=== PATIENT | female | born 1945 | race Caucasian/White ===

== ENCOUNTER 2020-02-07 07:44 | Outpatient (CLI) | payer MEDICARE, SELFPAY ==
[2020-02-07 08:30] LABS: Alanine Aminotransferase 20 U/L (14-59); Albumin Level 3.5 g/dL (3.4-5.0); Alkaline Phosphatase 72 U/L (46-116); Anion Gap 5 mmol/L (8-16); Aspartate Amino Transferase 20 U/L (15-37); Bilirubin,Total 0.7 mg/dL (0.00-1.00); Blood Urea Nitrogen 22 mg/dL (7-18); Calcium 9.2 mg/dL (8.5-10.1); Carbon Dioxide 34 mmol/L (21-32); Chloride 103 mmol/L (98-108); Cholesterol 176 mg/dL (0-200); Estimated Glomerular Filt Rate 41; Glucose 87 mg/dL (70-99); HDL Direct 77 mg/dL (40-60); LDL Cholesterol Calculated 73 mg/dL (<130); Osmolality Calculated 296 mOsm/kg (285-295); Potassium 3.7 mmol/L (3.5-5.1); Sodium 142 mmol/L (136-145); Triglycerides 132 mg/dL (0-150)
== END 2020-02-07 07:45 | disposition home or self-care (01) ==
PROVIDERS: PCP Internal Medicine; Visit Provider Internal Medicine
DX: E78.5 Hyperlipidemia, unspecified (principal); I10 Essential (primary) hypertension
CPT/HCPCS: 36415; 80053; 80061

== ENCOUNTER 2020-07-24 08:05 | Outpatient (CLI) | payer MEDICARE, SELFPAY ==
[2020-07-24 08:24] LABS: Add Urine Microscopic? YES; Appearance Urine Clear (Clear); Basophils Absolute Auto 0.07 K/mm3 (0.00-0.10); Basophils Percent Auto 1.2 % (0.0-1.0); Bilirubin Urine Negative (Negative); Blood Urine Negative (Negative); Color Urine Yellow (Yellow); Eosinophils Absolute Auto 0.19 K/mm3 (0.02-0.50); Eosinophils Percent Auto 3.4 % (1.0-6.0); Glucose Urine UA Negative (Negative); Hematocrit 44.3 % (35.0-42.0); Immature Granulocyte Absolute 0.01 K/mm3 (0.00-0.00); Immature Granulocyte Percent A 0.2 % (0.0-0.0); Ketones Urine Negative (Negative); Leukocyte Esterase Ur Trace LEU/UL (Negative); Lymphocytes Absolute Auto 1.93 K/mm3 (1.10-4.50); Lymphocytes Percent Auto 34.3 % (18.0-42.0); Mean Corpuscular HGB Conc 31.6 g/dL (32.0-36.0); Mean Corpuscular Volume 88.6 fL (78.0-102.0); Mean Platelet Volume 9.4 fl (9.2-11.8); Monocytes Absolute Auto 0.49 K/mm3 (0.10-0.90); Monocytes Percent Auto 8.7 % (2.0-11.0); Neutrophils Absolute Auto 2.9 K/mm3 (1.7-7.2); Neutrophils Percent Auto 52.2 % (50.0-70.0); Nitrate Urine Negative (Negative); Platelet Count Result 317 K/mm3 (150-420); Protein Urine Negative (Negative); Red Cell Distribution Width 12.7 % (11.6-14.4); Urobilinogen Urine 0.2 mg/dL (0.2-1.0); White Blood Count 5.6 K/mm3 (4.8-10.8)
[2020-07-24 08:27] LABS: Bacteria Urine Trace /hpf; RBC Urine None seen /hpf (0-2); Squamous Epithelial Cell Urine Few /hpf (Few); WBC Urine None seen /hpf (0-3)
[2020-07-24 09:18] LABS: Alanine Aminotransferase 36 U/L (14-59); Albumin Level 3.8 g/dL (3.4-5.0); Alkaline Phosphatase 77 U/L (46-116); Anion Gap 8 mmol/L (8-16); Aspartate Amino Transferase 17 U/L (15-37); Bilirubin,Total 0.7 mg/dL (0.00-1.00); Blood Urea Nitrogen 19 mg/dL (7-18); Calcium 9.2 mg/dL (8.5-10.1); Carbon Dioxide 32 mmol/L (21-32); Chloride 98 mmol/L (98-108); Cholesterol 166 mg/dL (0-200); Estimated Glomerular Filt Rate 43; Glucose 93 mg/dL (70-99); HDL Direct 78 mg/dL (40-60); LDL Cholesterol Calculated 66 mg/dL (<130); Osmolality Calculated 288 mOsm/kg (285-295); Potassium 3.4 mmol/L (3.5-5.1); Sodium 138 mmol/L (136-145); Total Protein 7.3 g/dL (6.4-8.2); Triglycerides 110 mg/dL (0-150)
== END 2020-07-24 08:06 | disposition home or self-care (01) ==
LOC: CHSLAB 08:07
PROVIDERS: PCP Internal Medicine; Visit Provider Internal Medicine
DX: E78.5 Hyperlipidemia, unspecified (principal); I10 Essential (primary) hypertension
CPT/HCPCS: 36415; 80053; 80061; 81001; 85025

== ENCOUNTER 2021-01-17 07:45 | Outpatient (CLI) | payer MEDICARE, SELFPAY ==
[2021-01-17 08:21] LABS: Alanine Aminotransferase 20 U/L (14-59); Albumin Level 3.6 g/dL (3.4-5.0); Alkaline Phosphatase 73 U/L (46-116); Anion Gap 9 mmol/L (8-16); Aspartate Amino Transferase 16 U/L (15-37); Bilirubin,Total 0.6 mg/dL (0.00-1.00); Blood Urea Nitrogen 19 mg/dL (7-18); Calcium 9.2 mg/dL (8.5-10.1); Carbon Dioxide 32 mmol/L (21-32); Chloride 104 mmol/L (98-108); Cholesterol 178 mg/dL (0-200); Estimated Glomerular Filt Rate 44; Glucose 106 mg/dL (70-99); HDL Direct 82 mg/dL (40-60); LDL Cholesterol Calculated 71 mg/dL (<130); Osmolality Calculated 302 mOsm/kg (285-295); Potassium 3.5 mmol/L (3.5-5.1); Sodium 145 mmol/L (136-145); Triglycerides 125 mg/dL (0-150)
== END 2021-01-17 07:46 | disposition home or self-care (01) ==
LOC: CHSLAB 07:46
PROVIDERS: PCP Internal Medicine; Visit Provider Internal Medicine
DX: I10 Essential (primary) hypertension (principal)
CPT/HCPCS: 36415; 80053; 80061

== ENCOUNTER 2021-07-23 08:21 | Outpatient (CLI) | payer MEDICARE, SELFPAY ==
[2021-07-23 08:42] LABS: Basophils Absolute Auto 0.09 K/mm3 (0.00-0.10); Basophils Percent Auto 1.5 % (0.0-1.0); Eosinophils Absolute Auto 0.18 K/mm3 (0.02-0.50); Eosinophils Percent Auto 2.9 % (1.0-6.0); Hematocrit 35.3 % (35.0-42.0); Hemoglobin 10.6 g/dL (11.7-13.8); Immature Granulocyte Absolute 0.01 K/mm3 (0.00-0.00); Immature Granulocyte Percent A 0.2 % (0.0-0.0); Lymphocytes Absolute Auto 1.28 K/mm3 (1.10-4.50); Lymphocytes Percent Auto 20.8 % (18.0-42.0); Mean Corpuscular Hemoglobin 24.3 pg (27.0-31.0); Mean Corpuscular Volume 80.8 fL (78.0-102.0); Mean Platelet Volume 8.7 fl (9.2-11.8); Monocytes Absolute Auto 0.52 K/mm3 (0.10-0.90); Monocytes Percent Auto 8.4 % (2.0-11.0); Neutrophils Absolute Auto 4.1 K/mm3 (1.7-7.2); Neutrophils Percent Auto 66.2 % (50.0-70.0); Platelet Count Result 382 K/mm3 (150-420); Red Blood Count 4.37 M/mm3 (4.20-5.40); White Blood Count 6.2 K/mm3 (4.8-10.8)
[2021-07-23 08:45] LABS: Appearance Urine Clear (Clear); Bilirubin Urine Negative (Negative); Color Urine Yellow (Yellow); Glucose Urine UA Negative (Negative); Ketones Urine Negative (Negative); Leukocyte Esterase Ur Negative (Negative); Nitrate Urine Negative (Negative); Protein Urine Trace (Negative); pH Urine 7.5 (5.0-8.0)
[2021-07-23 08:51] LABS: Add Urine Microscopic? YES; Blood Urine Trace-Lysed (Negative); RBC Urine 0-2 /hpf (0-2); Squamous Epithelial Cell Urine Moderate /hpf (Few); WBC Urine 0-3 /hpf (0-3)
[2021-07-23 08:52] LABS: Bacteria Urine Trace /hpf; Budding Yeast Urine Present /hpf; Mucus Urine Moderate /lpf
[2021-07-23 09:19] LABS: Alanine Aminotransferase 15 U/L (14-59); Albumin Level 3.3 g/dL (3.4-5.0); Alkaline Phosphatase 80 U/L (46-116); Anion Gap 10 mmol/L (8-16); Aspartate Amino Transferase 12 U/L (15-37); Bilirubin,Total 0.7 mg/dL (0.00-1.00); Blood Urea Nitrogen 24 mg/dL (7-18); Calcium 9.3 mg/dL (8.5-10.1); Carbon Dioxide 31 mmol/L (21-32); Chloride 97 mmol/L (98-108); Cholesterol 157 mg/dL (0-200); Estimated Glomerular Filt Rate 36; Glucose 96 mg/dL (70-99); HDL Direct 78 mg/dL (40-60); LDL Cholesterol Calculated 64 mg/dL (<130); Osmolality Calculated 290 mOsm/kg (285-295); Potassium 3.4 mmol/L (3.5-5.1); Sodium 138 mmol/L (136-145); Thyroid Stimulating Hormone 2.79 uIU/mL (0.36-3.74); Total Protein 6.7 g/dL (6.4-8.2); Triglycerides 74 mg/dL (0-150)
== END 2021-07-23 08:22 | disposition home or self-care (01) ==
LOC: CHSLAB 08:23
PROVIDERS: PCP Internal Medicine; Visit Provider Internal Medicine
DX: E78.5 Hyperlipidemia, unspecified (principal); I10 Essential (primary) hypertension; Z00.00 Encounter for general adult medical examination without abnormal findings
CPT/HCPCS: 36415; 80053; 80061; 81001; 84443; 85025

== ENCOUNTER 2021-07-25 12:16 | Outpatient (CLI) | payer MEDICARE, SELFPAY ==
--- NOTE | ~2021-07-25 | XR_ITS ---
XR chest 2V 07/25/2021 12:49 Indication: Anemia. Proteinuria. Procedure: 2 view chest Comparison: 02/06/2009 Findings: Large hiatal hernia. Scoliosis. Heart size normal. No focal air space disease, pulmonary ed dominik, pleural effusion or suspected pneumothorax. Impression: 1: No acute cardiopulmonary disease. 2: Large hiatal hernia. Reviewed, dictated and finalized at location B. ICAL LAB TECHNICIAN Impression: 1: No acute cardiopulmonary disease. 2: Large hiatal hernia.
[2021-07-25 12:44] LABS: Basophils Absolute Auto 0.08 K/mm3 (0.00-0.10); Basophils Percent Auto 1.3 % (0.0-1.0); Eosinophils Absolute Auto 0.13 K/mm3 (0.02-0.50); Eosinophils Percent Auto 2.1 % (1.0-6.0); Hematocrit 34.9 % (35.0-42.0); Hemoglobin 10.5 g/dL (11.7-13.8); Immature Granulocyte Absolute 0.02 K/mm3 (0.00-0.00); Immature Granulocyte Percent A 0.3 % (0.0-0.0); Immature Platelet Fraction Pct 1.3 % (1.0-7.0); Immature Reticulocyte Fraction 24.7 % (2.0-16.52); Lymphocytes Absolute Auto 1.39 K/mm3 (1.10-4.50); Lymphocytes Percent Auto 22.5 % (18.0-42.0); Mean Corpuscular HGB Conc 30.1 g/dL (32.0-36.0); Mean Corpuscular Hemoglobin 24.2 pg (27.0-31.0); Mean Corpuscular Volume 80.4 fL (78.0-102.0); Mean Platelet Volume 9.2 fl (9.2-11.8); Monocytes Absolute Auto 0.54 K/mm3 (0.10-0.90); Monocytes Percent Auto 8.7 % (2.0-11.0); Neutrophils Percent Auto 65.1 % (50.0-70.0); Platelet Count Result 411 K/mm3 (150-420); Red Blood Count 4.34 M/mm3 (4.20-5.40); Red Cell Distribution Width 14.2 % (11.6-14.4); Reticulocyte Hemoglobin Conten 22.8 pg (28.0-35.0); Reticulocytes Absolute 0.08 M/mm3 (0.02-0.1); White Blood Count 6.2 K/mm3 (4.8-10.8)
[2021-07-25 12:47] LABS: Add Urine Microscopic? YES; Appearance Urine Sl Cloudy (Clear); Bilirubin Urine Negative (Negative); Blood Urine 1+ (Negative); Color Urine Yellow (Yellow); Glucose Urine UA Negative (Negative); Ketones Urine Negative (Negative); Leukocyte Esterase Ur Negative (Negative); Nitrate Urine Negative (Negative); Protein Urine Negative (Negative); Specific Grav Ur >= 1.030 (1.010-1.020); Urobilinogen Urine 0.2 mg/dL (0.2-1.0); pH Urine 5.5 (5.0-8.0)
[2021-07-25 13:00] LABS: Bacteria Urine 1+ /hpf; Squamous Epithelial Cell Urine Moderate /hpf (Few); WBC Urine 0-3 /hpf (0-3)
[2021-07-25 13:17] LABS: Alanine Aminotransferase 15 U/L (14-59); Albumin Level 3.4 g/dL (3.4-5.0); Alkaline Phosphatase 79 U/L (46-116); Anion Gap 9 mmol/L (8-16); Aspartate Amino Transferase 11 U/L (15-37); Bilirubin,Total 0.6 mg/dL (0.00-1.00); Blood Urea Nitrogen 22 mg/dL (7-18); Carbon Dioxide 31 mmol/L (21-32); Chloride 99 mmol/L (98-108); Estimated Glomerular Filt Rate 42; Ferritin 8 ng/mL (8-252); Free T3 2.46 pg/mL (2.18-3.98); Free T4 Free Thyroxine 1.07 ng/dL (0.76-1.46); Glucose 99 mg/dL (70-99); Iron 14 ug/dL (50-170); Lactate Dehydrogenase 165 U/L (81-234); Osmolality Calculated 291 mOsm/kg (285-295); Percent Iron Saturation 3 % (12-57); Potassium 3.1 mmol/L (3.5-5.1); Sodium 139 mmol/L (136-145); Thyroid Stimulating Hormone 2.02 uIU/mL (0.36-3.74); Total Protein 6.9 g/dL (6.4-8.2)
[2021-07-25 13:22] LABS: CRP < 0.5 mg/dL (0.0-0.9)
[2021-07-29 04:11] LABS: Thyroglobulin 167.6 ng/mL (2.8-40.9); Thyroglobulin Antibodies <1 IU/mL (<=1)
[2021-07-29 07:35] LABS: Red Blood Cell Folate 685 ng/mL RBC (>280)
[2021-07-29 07:54] LABS: Methylmalonic Acid 340 nmol/L (87-318)
== END 2021-07-25 12:17 | disposition home or self-care (01) ==
LOC: CHSLAB 12:19
PROVIDERS: PCP Internal Medicine; Visit Provider Internal Medicine
DX: D64.9 Anemia, unspecified (principal); R80.9 Proteinuria, unspecified; R22.1 Localized swelling, mass and lump, neck
CPT/HCPCS: 36415; 71046; 80053; 81001; 82728; 82747; 83540; 83550; 83615; 83921; 84432; 84439; 84443; 84481; 85025; 85046; 85055; 86140; 86800

== ENCOUNTER 2021-07-27 13:12 | Outpatient (CLI) | payer MEDICARE, SELFPAY ==
--- NOTE | ~2021-07-27 | US_ITS ---
EXAMINATION: US renal BI EXAM DATE: 07/27/2021 13:46 INDICATION: Blood in Urine/Neck Mass . TECHNIQUE: Multiple grayscale and Doppler images of the kidneys were obtained (by a technologist who performed the scan) and subsequently reviewed. There is no prior study for comparison. FINDINGS: Right kidney: There is normal contour and echogenicity. It measures 8.6 x 3.8 x 4.0 centimeters. Th ere are no focal renal lesions identified. There is no hydronephrosis. Left kidney: There is normal contour and echogenicity. It measures 8.2 x 4.0 x 3.7 centimeters. The re are no focal renal lesions identified. There is no hydronephrosis. Bladder unremarkable. IMPRESSION: Sonographically unremarkable kidneys. Reviewed, dictated and finalized at location A. ING MACHINE SET UP OPERATOR
--- NOTE | ~2021-07-27 | US_ITS ---
US soft tissue head and neck DATE: 07/27/2021 13:46 INDICATION: Neck mass TECHNIQUE: Real-time and color flow imaging of the neck COMPARISON: None FINDINGS: The left lobe of the thyroid gland measures 4.3 cm height, up to 1.0 cm AP dimension. There is a circumscribed 3.2 x 5.7 x 6.8 mm cyst of the midportion of the left lobe of the thyroid gl and. The left lobe and thyroid isthmus are otherwise unremarkable. There is a large complex mixed solid and cystic mass of the region of the right lobe of the thyroid g land which measures up to 5.9 x 3.6 x 5.6 cm, with prominent internal vascularity. Fine needle aspira tion biopsy is recommended. IMPRESSION: TR 4 moderately suspicious to 6.8 cm right thyroid mass. Fine-needle aspiration is recomm ended. Reviewed, dictated and finalized at Location A. Reviewed, dictated and finalized at location A. DATION DRILL OPERATOR HELPER IMPRESSION: TR 4 moderately suspicious to 6.8 cm right thyroid mass. Fine-needl e aspiration is recommended.
== END 2021-07-27 13:13 | disposition home or self-care (01) ==
LOC: CHSIMG 13:14
PROVIDERS: PCP Internal Medicine; Visit Provider Internal Medicine
DX: D64.9 Anemia, unspecified (principal); R80.9 Proteinuria, unspecified; R22.1 Localized swelling, mass and lump, neck; R31.9 Hematuria, unspecified
CPT/HCPCS: 76536; 76775

== ENCOUNTER 2021-07-30 09:27 | Outpatient (CLI) | payer MEDICARE, SELFPAY ==
[2021-07-30 09:41] LABS: Basophils Absolute Auto 0.07 K/mm3 (0.00-0.10); Eosinophils Absolute Auto 0.22 K/mm3 (0.02-0.50); Hematocrit 36.2 % (35.0-42.0); Hemoglobin 10.8 g/dL (11.7-13.8); Immature Granulocyte Absolute 0.01 K/mm3 (0.00-0.00); Immature Granulocyte Percent A 0.1 % (0.0-0.0); Lymphocytes Absolute Auto 1.78 K/mm3 (1.10-4.50); Lymphocytes Percent Auto 24.5 % (18.0-42.0); Mean Corpuscular HGB Conc 29.8 g/dL (32.0-36.0); Mean Corpuscular Hemoglobin 23.7 pg (27.0-31.0); Mean Corpuscular Volume 79.6 fL (78.0-102.0); Monocytes Percent Auto 8.3 % (2.0-11.0); Neutrophils Absolute Auto 4.6 K/mm3 (1.7-7.2); Neutrophils Percent Auto 63.1 % (50.0-70.0); Platelet Count Result 410 K/mm3 (150-420); Red Blood Count 4.55 M/mm3 (4.20-5.40); Red Cell Distribution Width 14.6 % (11.6-14.4); White Blood Count 7.3 K/mm3 (4.8-10.8)
[2021-07-30 10:13] LABS: Occult Blood Negative (Negative)
[2021-07-30 10:13] LABS: Occult Blood Negative (Negative)
[2021-07-30 10:13] LABS: Occult Blood Negative (Negative)
[2021-07-30 10:32] LABS: Alanine Aminotransferase 16 U/L (14-59); Albumin Level 3.3 g/dL (3.4-5.0); Alkaline Phosphatase 70 U/L (46-116); Anion Gap 5 mmol/L (8-16); Aspartate Amino Transferase 14 U/L (15-37); Bilirubin,Total 0.5 mg/dL (0.00-1.00); Blood Urea Nitrogen 18 mg/dL (7-18); Calcium 9.1 mg/dL (8.5-10.1); Carbon Dioxide 35 mmol/L (21-32); Chloride 100 mmol/L (98-108); Estimated Glomerular Filt Rate 44; Glucose 110 mg/dL (70-99); Osmolality Calculated 292 mOsm/kg (285-295); Potassium 3.3 mmol/L (3.5-5.1); Sodium 140 mmol/L (136-145); Total Protein 6.7 g/dL (6.4-8.2)
== END 2021-07-30 09:28 | disposition home or self-care (01) ==
LOC: CHSLAB 09:29
PROVIDERS: PCP Internal Medicine; Visit Provider Internal Medicine
DX: D50.9 Iron deficiency anemia, unspecified (principal)
CPT/HCPCS: 36415; 80053; 82272; 85025

== ENCOUNTER 2021-08-06 07:35 | Outpatient (CLI) | payer MEDICARE, SELFPAY ==
[2021-08-06 07:50] LABS: Basophils Absolute Auto 0.04 K/mm3 (0.00-0.10); Basophils Percent Auto 0.8 % (0.0-1.0); Eosinophils Percent Auto 3.9 % (1.0-6.0); Hematocrit 30.3 % (35.0-42.0); Hemoglobin 8.9 g/dL (11.7-13.8); Immature Granulocyte Absolute 0.01 K/mm3 (0.00-0.00); Immature Granulocyte Percent A 0.2 % (0.0-0.0); Lymphocytes Percent Auto 27.4 % (18.0-42.0); Mean Corpuscular HGB Conc 29.4 g/dL (32.0-36.0); Mean Corpuscular Hemoglobin 23.2 pg (27.0-31.0); Mean Corpuscular Volume 78.9 fL (78.0-102.0); Mean Platelet Volume 8.8 fl (9.2-11.8); Monocytes Absolute Auto 0.37 K/mm3 (0.10-0.90); Monocytes Percent Auto 7.2 % (2.0-11.0); Neutrophils Absolute Auto 3.1 K/mm3 (1.7-7.2); Neutrophils Percent Auto 60.5 % (50.0-70.0); Platelet Count Result 350 K/mm3 (150-420); Red Blood Count 3.84 M/mm3 (4.20-5.40); Red Cell Distribution Width 15.2 % (11.6-14.4); White Blood Count 5.1 K/mm3 (4.8-10.8)
[2021-08-06 08:45] LABS: Alanine Aminotransferase 18 U/L (14-59); Albumin Level 3.2 g/dL (3.4-5.0); Alkaline Phosphatase 58 U/L (46-116); Anion Gap 11 mmol/L (8-16); Aspartate Amino Transferase 12 U/L (15-37); Bilirubin,Total 0.6 mg/dL (0.00-1.00); Blood Urea Nitrogen 22 mg/dL (7-18); Calcium 8.6 mg/dL (8.5-10.1); Carbon Dioxide 26 mmol/L (21-32); Chloride 104 mmol/L (98-108); Estimated Glomerular Filt Rate 45; Glucose 92 mg/dL (70-99); Osmolality Calculated 295 mOsm/kg (285-295); Potassium 4.2 mmol/L (3.5-5.1); Sodium 141 mmol/L (136-145); Total Protein 6.2 g/dL (6.4-8.2)
== END 2021-08-06 07:36 | disposition home or self-care (01) ==
LOC: CHSLAB 07:37
PROVIDERS: PCP Internal Medicine; Visit Provider Internal Medicine
DX: E87.6 Hypokalemia (principal)
CPT/HCPCS: 36415; 80053; 83735; 85025

== ENCOUNTER 2021-08-14 08:48 | Outpatient (CLI) | payer MEDICARE, SELFPAY ==
[2021-08-14] MEDS: CYANOCOBALAMIN INJ 1,000 MCG/ML VIAL 1000 MCG IM (09:06)
[2021-08-14 09:09] VITALS: BP 138/76; PULSE 78; RESP 14; TEMP 36.3; O2SAT 98
[2021-08-14 09:10] VITALS: BMI 28.3
--- NOTE | 2021-08-14 11:18 | PC.NURSE ---
Patient here for IV Venofer x1 and B12 injection daily x3. Education on meds given. No concerns. B12 #1-3 and IV Venofer administered- see MAR. Tolerated well. Safe exit of hospital. Will return for # 2 of 3 B12 injection tomorrow at 0900.KJ
== END 2021-08-14 08:49 | disposition home or self-care (01) ==
LOC: CHSTREATRM 08:50
PROVIDERS: PCP Internal Medicine; Visit Provider Internal Medicine
DX: D50.9 Iron deficiency anemia, unspecified (principal); E53.8 Deficiency of other specified B group vitamins
CPT/HCPCS: 96365; 96366; 96372; J1756; J3420; J7050

== ENCOUNTER 2021-08-15 08:43 | Outpatient (CLI) | payer MEDICARE, SELFPAY ==
[2021-08-15] MEDS: CYANOCOBALAMIN INJ 1,000 MCG/ML VIAL 1000 MCG IM (08:55)
[2021-08-15 08:56] VITALS: BMI 28.3
[2021-08-15 08:58] VITALS: BP 134/80; PULSE 78; RESP 14; TEMP 36.6; O2SAT 99
--- NOTE | 2021-08-15 08:58 | PC.NURSE ---
Patient here for #2 of 3 Vitamin 12 daily injections. No concerns voiced. Injection given SEE MAR. Safe exit of hospital. Will return tomorrow for #3.
== END 2021-08-15 08:44 | disposition home or self-care (01) ==
LOC: CHSTREATRM 08:45
PROVIDERS: PCP Internal Medicine; Visit Provider Internal Medicine
DX: E53.8 Deficiency of other specified B group vitamins (principal)
CPT/HCPCS: 96372; J3420

== ENCOUNTER 2021-08-16 08:56 | Outpatient (CLI) | payer MEDICARE, SELFPAY ==
[2021-08-16 09:09] VITALS: BMI 28.3
[2021-08-16 09:12] VITALS: BP 126/75; PULSE 78; RESP 14; TEMP 36.4; O2SAT 98
[2021-08-16] MEDS: CYANOCOBALAMIN INJ 1,000 MCG/ML VIAL 1000 MCG IM (09:16)
--- NOTE | 2021-08-16 09:17 | PC.NURSE ---
Patient here for #3 of 3 Vitamin B12 injection. No concerns voiced. Vitamin B injection administered. Tolerated well. Safe exit of hospital.
== END 2021-08-16 08:57 | disposition home or self-care (01) ==
LOC: CHSTREATRM 08:57
PROVIDERS: PCP Internal Medicine; Visit Provider Internal Medicine
DX: E53.8 Deficiency of other specified B group vitamins (principal)
CPT/HCPCS: 96372; J3420

== ENCOUNTER 2021-08-22 07:34 | Outpatient (CLI) | payer MEDICARE, SELFPAY ==
[2021-08-22 07:45] LABS: Basophils Absolute Auto 0.06 K/mm3 (0.00-0.10); Basophils Percent Auto 1.2 % (0.0-1.0); Eosinophils Absolute Auto 0.18 K/mm3 (0.02-0.50); Eosinophils Percent Auto 3.5 % (1.0-6.0); Hematocrit 33.3 % (35.0-42.0); Hemoglobin 9.5 g/dL (11.7-13.8); Immature Granulocyte Absolute 0.02 K/mm3 (0.00-0.00); Immature Granulocyte Percent A 0.4 % (0.0-0.0); Lymphocytes Absolute Auto 1.39 K/mm3 (1.10-4.50); Mean Corpuscular HGB Conc 28.5 g/dL (32.0-36.0); Mean Corpuscular Hemoglobin 22.2 pg (27.0-31.0); Mean Corpuscular Volume 77.8 fL (78.0-102.0); Mean Platelet Volume 9.2 fl (9.2-11.8); Monocytes Absolute Auto 0.35 K/mm3 (0.10-0.90); Monocytes Percent Auto 6.8 % (2.0-11.0); Neutrophils Absolute Auto 3.1 K/mm3 (1.7-7.2); Neutrophils Percent Auto 61.1 % (50.0-70.0); Platelet Count Result 304 K/mm3 (150-420); Red Blood Count 4.28 M/mm3 (4.20-5.40); Red Cell Distribution Width 19.6 % (11.6-14.4); White Blood Count 5.1 K/mm3 (4.8-10.8)
[2021-08-22 08:21] LABS: Alanine Aminotransferase 21 U/L (14-59); Albumin Level 3.3 g/dL (3.4-5.0); Alkaline Phosphatase 63 U/L (46-116); Anion Gap 8 mmol/L (8-16); Aspartate Amino Transferase 15 U/L (15-37); Bilirubin,Total 0.6 mg/dL (0.00-1.00); Blood Urea Nitrogen 21 mg/dL (7-18); Calcium 8.9 mg/dL (8.5-10.1); Carbon Dioxide 30 mmol/L (21-32); Chloride 105 mmol/L (98-108); Estimated Glomerular Filt Rate 47; Glucose 95 mg/dL (70-99); Osmolality Calculated 299 mOsm/kg (285-295); Potassium 3.8 mmol/L (3.5-5.1); Sodium 143 mmol/L (136-145); Total Protein 6.5 g/dL (6.4-8.2)
== END 2021-08-22 07:35 | disposition home or self-care (01) ==
LOC: CHSLAB 07:36
PROVIDERS: PCP Internal Medicine; Visit Provider Internal Medicine
DX: D64.9 Anemia, unspecified (principal); R79.89 Other specified abnormal findings of blood chemistry
CPT/HCPCS: 36415; 80053; 85025

== ENCOUNTER 2021-09-12 08:33 | Outpatient (CLI) | payer MEDICARE, SELFPAY ==
--- NOTE | ~2021-09-12 | US_ITS ---
EXAMINATION: US FNA w image guidance DATE: 09/12/2021 09:59 INDICATION: Right thyroid mass TECHNIQUE: A time-out was performed to verify the patient's name, date of , and procedure to be performed . The procedure and its benefits and risks were discussed with the patient. Risks specifically discus sed included bleeding and infection. The patient understood the risks and agreed to proceed. The neck was prepped and draped in the usual sterile manner. 3 mL 1% lidocaine was used for local anesthesia . 6 passes were made with a 25G needle into the lesion. Centrally the cystic component of the lesion was aspirated with a 22G needle. Appropriate needle location was documented with continuous sonograp hic guidance. A sterile bandage was applied. There were no immediate complications. FINDINGS: Grayscale ultrasound images demonstrate biopsy needles advanced into a 5.8 x 4.2 x 5.8 cm mixed solid and cystic right thyroid mass. IMPRESSION: 1. Successful ultrasound-guided fine needle aspiration of 5.8 cm mixed solid and cystic right thyroi d mass. Reviewed, dictated and finalized at location A. IMPRESSION: 1. Successful ultrasound-guided fine needle aspiration of 5.8 cm mixed solid a nd cystic right thyroid mass.
== END 2021-09-12 08:34 | disposition home or self-care (01) ==
LOC: ANHIMG 08:37
PROVIDERS: PCP Internal Medicine; Visit Provider Internal Medicine
DX: E04.1 Nontoxic single thyroid nodule (principal)
CPT/HCPCS: 10005; 88173; 88305

== ENCOUNTER 2021-09-14 09:48 | Outpatient (CLI) | payer MEDICARE, SELFPAY ==
[2021-09-14 09:58] LABS: Basophils Absolute Auto 0.06 K/mm3 (0.00-0.10); Basophils Percent Auto 0.9 % (0.0-1.0); Eosinophils Absolute Auto 0.13 K/mm3 (0.02-0.50); Hemoglobin 10.4 g/dL (11.7-13.8); Immature Granulocyte Absolute 0.02 K/mm3 (0.00-0.00); Immature Granulocyte Percent A 0.3 % (0.0-0.0); Lymphocytes Absolute Auto 1.41 K/mm3 (1.10-4.50); Lymphocytes Percent Auto 21.2 % (18.0-42.0); Mean Corpuscular HGB Conc 28.1 g/dL (32.0-36.0); Mean Corpuscular Hemoglobin 20.5 pg (27.0-31.0); Mean Platelet Volume 8.7 fl (9.2-11.8); Monocytes Absolute Auto 0.51 K/mm3 (0.10-0.90); Monocytes Percent Auto 7.7 % (2.0-11.0); Neutrophils Absolute Auto 4.5 K/mm3 (1.7-7.2); Neutrophils Percent Auto 67.9 % (50.0-70.0); Platelet Count Result 370 K/mm3 (150-420); Red Blood Count 5.07 M/mm3 (4.20-5.40); Red Cell Distribution Width 19.2 % (11.6-14.4); White Blood Count 6.7 K/mm3 (4.8-10.8)
[2021-09-14 10:55] LABS: Alanine Aminotransferase 21 U/L (14-59); Albumin Level 3.7 g/dL (3.4-5.0); Alkaline Phosphatase 69 U/L (46-116); Anion Gap 8 mmol/L (8-16); Aspartate Amino Transferase 14 U/L (15-37); Bilirubin,Total 0.7 mg/dL (0.00-1.00); Blood Urea Nitrogen 22 mg/dL (7-18); Calcium 9.1 mg/dL (8.5-10.1); Carbon Dioxide 29 mmol/L (21-32); Chloride 103 mmol/L (98-108); Estimated Glomerular Filt Rate 41; Glucose 125 mg/dL (70-99); Osmolality Calculated 294 mOsm/kg (285-295); Potassium 3.5 mmol/L (3.5-5.1); Sodium 140 mmol/L (136-145); Total Protein 6.7 g/dL (6.4-8.2)
== END 2021-09-14 09:49 | disposition home or self-care (01) ==
LOC: CHSLAB 09:50
PROVIDERS: PCP Internal Medicine; Visit Provider Internal Medicine
DX: I10 Essential (primary) hypertension (principal)
CPT/HCPCS: 36415; 80053; 85025

== ENCOUNTER 2021-09-19 00:14 | Day surgery (SDC) | payer MEDICARE, SELFPAY ==
[2021-09-06 13:40] VITALS: BMI 27.4
[2021-09-19 07:55] VITALS: BP 159/90; PULSE 103; RESP 18; TEMP 36.2; O2SAT 99
[2021-09-19] MEDS: LACTATED RINGERS 1,000 ML 150 ML IV CONT (08:01)
--- NOTE | 2021-09-19 08:57 | WPDANESEPPF ---
Anes - Initial Pre Proc Eval Procedure: Operation Date: 09/19/21 09:00 Proposed Procedures p Esophagogastroduodenoscopy & Colonoscopy - Melquiades Vo MD Date/Time: 09/19/21 08:57 Surgeon: Melquiades Vo MD Pre Op Diagnosis: LUCI Patient Data Age: 75 Gender: F Height: 1.57 m Weight: 64.6 kg Last Vital Signs Temp 36.2 C L 09/19/21 07:55 Pulse 103 H 09/19/21 07:55 Resp 18 09/19/21 07:55 BP 159/90 H 09/19/21 07:55 Pulse Ox 99 09/19/21 07:55 Allergies Allergy/AdvReac Type Severity Reaction Status Date / Time No Known Allergies Allergy Verified 09/19/21 07:54 Home Medications Medication Instructions Recorded Confirmed Type escitalopram oxalate 20 mg PO DAILY 08/14/21 09/06/21 History lorazepam 1 mg PO HS PRN 08/14/21 09/06/21 History pantoprazole 40 mg PO DAILY 08/14/21 09/06/21 History pravastatin 40 mg PO HS 08/14/21 09/06/21 History verapamil 180 mg PO HS 08/14/21 09/06/21 History aspirin [Adult Aspirin] 81 mg PO DAILY 09/06/21 09/06/21 History Patient hx anesthesia problems: none Family hx anesthesia problems: none Results Review: All pre-operative results and documents have been reviewed as part of the pre-operative evaluation. [facility] [place] Past Medical History Medical History (Updated 09/19/21 @ 08:59 by Osvaldo Beverly MD) Anxiety HTN (hypertension) Hyperlipidemia Social History Social History Smoking status: Never smoker Substance use type: does not use Living arrangements: alone Spiritual care concerns: No Anes - Eval Final PreProcedure Day of Procedure 09/19/21 08:57 Patient weight: overweight Heart: regular rate and rhythm Lungs: clear to auscultation Airway: Mallampati scale class II Neurological: alert and oriented Last oral intake: >/= 8 hours ASA classification: III Emergent: no Anesthetic plan: proceed Anesthesia type and monitoring: general GIVS and standard monitoring Results Review: All pre-operative results and documents have been reviewed as part of the pre-operative evaluation. Informed Consent: The patient's anesthetic plan and its attendant risks and benefits were discussed with the patient/family/POA. Questions were solicited and answers provided to the satisfaction of the patient/family/POA.
--- NOTE | 2021-09-19 08:59 | PM.HPGS ---
History of Present Illness History of Present Illness Consent: Risks, benefits, and alternatives have been discussed and questions answered. Patient agrees to proceed with procedure. Chief complaint: LUCI Narrative: Sherly Molina is a 75 year old female with LUCI, hb 8.9 but denies over gib, never had scopes. About 1 month ago started on pantoprazole because burping, now feeling better. FOBT negative. Review of Systems Constitutional: Constitutional: Denies headache(s) and Denies weakness Eyes: Eyes: Denies blurry vision ENT: Reports Normal hearing present, Denies headache(s) and Denies neck pain Cardiovascular: Cardiovascular: Denies chest pain and Denies dyspnea Respiratory: Respiratory: Denies dyspnea Gastrointestinal: Gastrointestinal: Reports no additional gastrointestinal complaints Genitourinary: Genitourinary: Denies dysuria Musculoskeletal: Musculoskeletal: Denies neck pain Integumentary/Breasts: Skin/Breast: Denies dry skin Neurologic: Reports Normal hearing present, Denies headache(s) and Denies weakness Psychiatric: Psychiatric: Denies anxiety Endocrine: Endocrine: Denies change in body appearance Hematologic/Lymphatic: Hematologic/Lymphatic: Denies easy bleeding Allergic/Immunologic: Allergic/Immunologic: Denies urticaria PMFSH Past Medical History Medical History (Updated 09/19/21 @ 09:00 by Melquiades Vo MD) Anxiety HTN (hypertension) Hyperlipidemia Iron deficiency anemia Social History Social History Smoking status: Never smoker Substance use type: does not use Living arrangements: alone Spiritual care concerns: No Meds Home Medications and Allergies Home Medications Medication Instructions Recorded Confirmed Type escitalopram oxalate 20 mg PO DAILY 08/14/21 09/06/21 History lorazepam 1 mg PO HS PRN 08/14/21 09/06/21 History pantoprazole 40 mg PO DAILY 08/14/21 09/06/21 History pravastatin 40 mg PO HS 08/14/21 09/06/21 History verapamil 180 mg PO HS 08/14/21 09/06/21 History aspirin [Adult Aspirin] 81 mg PO DAILY 09/06/21 09/06/21 History Allergies Allergy/AdvReac Type Severity Reaction Status Date / Time No Known Allergies Allergy Verified 09/19/21 07:54 Vital Signs Vital Signs - 24 hr 09/19/21 07:55 Temperature 97.1 F L Pulse Rate 103 H Respiratory Rate 18 Blood Pressure 159/90 H Pulse Oximetry 99 Exam Const: General: comfortable and no acute distress HENMT: General nose exam: Normal nares present Eyes: General: appearance normal, both eyes and all related structures Neck: Neck: no JVD Resp: Auscultation: clear to auscultation bilaterally Cardio: Rate: regular rate Rhythm: regular rhythm GI: Inspection: non-distended GI Palp: Yes Soft to palpation Skin: General skin exam: normal color Neuro: General: gait normal Speech: normal speech Extrem: General: normal to inspection Psych: Mental Status: mental status grossly normal Assessment and Plan Assessment and plan (1) Iron deficiency anemia: Code(s): D50.9 - Iron deficiency anemia, unspecified Status: Acute Assessment and Plan: egd and colonoscopy to assess if gi blood loss
--- NOTE | 2021-09-19 09:15 | SUR.OPER ---
EGD: [id number] COLON: [id number]
[2021-09-19 09:39] VITALS: BP 134/84; PULSE 98; RESP 32; O2SAT 98
[2021-09-19 09:49] VITALS: BP 140/86; PULSE 96; RESP 22; O2SAT 99
[2021-09-19 09:59] VITALS: BP 151/90; PULSE 90; RESP 19; O2SAT 100
== END 2021-09-19 10:11 | disposition home or self-care (01) ==
PROVIDERS: PCP Internal Medicine; Visit Provider Internal Medicine Gastroenterology
PROC: 0DJ08ZZ Inspection of Upper Intestinal Tract, Via Natural or Artificial Opening Endoscopic (ICD-10-PCS; CPT 43235; principal; 2021-09-19 09:00)
DX: D50.9 Iron deficiency anemia, unspecified (principal); K21.9 Gastro-esophageal reflux disease without esophagitis; K44.9 Diaphragmatic hernia without obstruction or gangrene; K29.70 Gastritis, unspecified, without bleeding; Z12.11 Encounter for screening for malignant neoplasm of colon; D12.0 Benign neoplasm of cecum; D12.8 Benign neoplasm of rectum; K63.5 Polyp of colon; K57.30 Diverticulosis of large intestine without perforation or abscess without bleeding; K64.4 Residual hemorrhoidal skin tags; I10 Essential (primary) hypertension; E78.5 Hyperlipidemia, unspecified; F41.9 Anxiety disorder, unspecified
CPT/HCPCS: 43239; 45385; 45381; 88305; J2704; J7120

== ENCOUNTER 2023-12-09 09:51 | Outpatient (CLI) | payer MEDICARE, SELFPAY ==
[2023-12-09 10:00] VITALS: BP 140/74; PULSE 64; RESP 14; TEMP 36.6; O2SAT 98; BMI 28.2
[2023-12-09] MEDS: IRON SUCROSE COMPLEX 300 MG in SODIUM CHLORIDE 0.9% IV 250 ML 125 MG IVPB (10:15)
--- NOTE | 2023-12-09 12:21 | PC.NURSE ---
Patient here for #1 of 2 weekly IV Venofer infusions. Education given. All concerns voiced answered. IV Venofer administered. SEE MAR. Tolerated well. Will return 12/16/23 at 1000 for #2 of 2. Safe exit of hospital per self/ambulatory.
[2023-12-09 12:23] VITALS: BP 129/68; PULSE 68; RESP 14; O2SAT 98
== END 2023-12-09 09:52 | disposition home or self-care (01) ==
PROVIDERS: PCP Internal Medicine; Visit Provider Internal Medicine
DX: D50.9 Iron deficiency anemia, unspecified (principal)
CPT/HCPCS: 96365; 96366; J1756; J7050

== ENCOUNTER 2023-12-16 09:46 | Outpatient (CLI) | payer MEDICARE, SELFPAY ==
[2023-12-16 10:00] VITALS: BP 135/77; PULSE 72; RESP 16; TEMP 36.4; O2SAT 99; BMI 28.6
[2023-12-16] MEDS: IRON SUCROSE COMPLEX 300 MG in SODIUM CHLORIDE 0.9% IV 250 ML 125 MG IVPB (10:22)
[2023-12-16 12:44] VITALS: BP 148/78; PULSE 63; RESP 16; TEMP 36.6; O2SAT 98
--- NOTE | 2023-12-16 12:52 | PC.NURSE ---
Patient tolerated iron infusion well. IV site discontinued for discharge.
== END 2023-12-16 12:52 | disposition home or self-care (01) ==
PROVIDERS: PCP Internal Medicine; Visit Provider Internal Medicine
DX: D50.9 Iron deficiency anemia, unspecified (principal)
CPT/HCPCS: 96365; 96366; J1756; J7050

== ENCOUNTER 2024-05-31 16:33 | Emergency (ER) | payer MEDICARE, SELFPAY ==
[2024-05-31 16:35] VITALS: BP 170/98; PULSE 96; RESP 20; TEMP 36.6; O2SAT 96
--- NOTE | 2024-05-31 17:52 | ED_ITS ---
HPI - Epistaxis General Chief complaint: Epistaxis Stated complaint: nose bleed Source: patient Mode of arrival: ambulatory Limitations: no limitations History of Present Illness HPI Narrative: intermittent left nostril bleed since yesterday, More nose bleed at the left side 2 hours prior to arrival to the emergency room. Patient is on baby aspirin once a day, no anticoagulant medication, denies history of nose bleeds before. Been using furnace in the last few days. Related Data Home Medications Medication Instructions Recorded Confirmed escitalopram oxalate 20 mg tablet 20 mg PO DAILY 08/14/21 05/31/24 lorazepam 1 mg tablet 1 mg PO HS PRN Anxiety 08/14/21 05/31/24 pantoprazole 40 mg tablet,delayed 40 mg PO DAILY 08/14/21 05/31/24 release pravastatin 40 mg tablet 40 mg PO HS 08/14/21 05/31/24 verapamil 180 mg tablet,extended 180 mg PO HS 08/14/21 05/31/24 release 24 hr aspirin 81 mg tablet 81 mg PO DAILY 09/06/21 05/31/24 levothyroxine 88 mcg tablet 88 mcg PO DAILY 12/09/23 05/31/24 losartan 25 mg tablet 25 mg PO DAILY 12/09/23 05/31/24 Allergies Allergy/AdvReac Type Severity Reaction Status Date / Time No Known Allergies Allergy Verified 05/31/24 17:02 Review of Systems Review of Systems: All systems reviewed & are unremarkable except as noted in HPI and below PMFSH Past Medical History Medical History Anxiety HTN (hypertension) Hyperlipidemia Iron deficiency anemia Social History Social History Smoking status: Never smoker Substance use type: does not use Living arrangements: alone Spiritual care concerns: No Exam Narrative: General appearance: Well-developed, well-nourished Skin: Normal color Head: Normocephalic, nontraumatic Eyes: Clear conjunctiva ENT: Oropharynx normal, ears normal, Left nostril bleed, difficult to localize the source of bleeding, Neck: Supple, nontender Chest and respiratory: Airway patent, no respiratory distress, no accessory muscle use Heart: Regular rate/rhythm Neurologic: Alert and oriented ?3, 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, no gross motor deficit Course Vital Signs Vital signs: Vital Signs Temperature 36.6 C 05/31/24 16:35 Pulse Rate 96 05/31/24 16:35 Respiratory Rate 20 05/31/24 16:35 Blood Pressure 170/98 H 05/31/24 16:35 Pulse Oximetry 96 05/31/24 16:35 Oxygen Delivery Room Air 05/31/24 16:35 Temperature 37.1 C 05/31/24 18:12 Pulse Rate 75 05/31/24 18:12 Respiratory Rate 18 05/31/24 18:12 Blood Pressure 175/84 H 05/31/24 18:12 Pulse Oximetry 96 05/31/24 18:12 Oxygen Delivery Room Air 05/31/24 18:12 MDM - Epistaxis MDM Narrative Medical decision making narrative: patient presents with left nostril bleed started yesterday, intermittent Vital signs showing blood pressure 170/98 otherwise within normal limit Physical examination showing slight left nostril bleed, difficult to localize the source of bleeding, Differential diagnosis include dry air, sneezing, nasal picking, I do not have any nasal speculum To try nasal cauterization, the only rhino ro cket available is 4.5, I prefers 7.5 instead. Nasal packing was done, nose bleed controlled. Differential Diagnosis Differential diagnosis: Likely other ( as above) Critical Care Time Critical Care Time Critical Care Time: No Discharge Plan Discharge Clinical Impression: Epistaxis Patient Disposition: Home, Self-Care Condition: Stable Instructions: Nosebleed (ED) Additional Instructions: Return if symptoms are worsening , call ENT for appointment, take Tylenol as as needed for aches and pain, continue home medications. REMOVE THE NASAL PACK IN 3-5 DAYS Prescriptions: New amoxicillin-pot clavulanate [Augmentin] 500-125 mg tablet 1 tablet PO Q8H Qty: 15 0RF No Action levothyroxine 88 mcg Tablet 88 mcg PO DAILY losartan 25 mg Tablet 25 mg PO DAILY verapamil 180 mg Tablet Extended Release 24hr 180 mg PO HS pravastatin 40 mg Tablet 40 mg PO HS pantoprazole 40 mg Tablet,Delayed Release (Dr/Ec) 40 mg PO DAILY lorazepam 1 mg Tablet 1 mg PO HS PRN (Reason: Anxiety) escitalopram oxalate 20 mg Tablet 20 mg PO DAILY Adult Aspirin 81 mg Tablet 81 mg PO DAILY Follow-up/Referrals: Marcellus Quijano MD [Primary Care Provider] -
--- NOTE | 2024-05-31 18:00 | PC.NURSE ---
Rhino Rocket placed in left nare. patient tolerated well.
[2024-05-31 18:12] VITALS: BP 175/84; PULSE 75; RESP 18; TEMP 37.1; O2SAT 96
[2024-05-31 18:57] VITALS: BP 165/82; PULSE 82; RESP 18; TEMP 36.8; O2SAT 97
== END 2024-05-31 18:57 | disposition home or self-care (01) ==
PROVIDERS: Emergency Provider Emergency Medicine; PCP Internal Medicine
DX: R04.0 Epistaxis (principal); I10 Essential (primary) hypertension; E78.5 Hyperlipidemia, unspecified; Z79.82 Long term (current) use of aspirin
CPT/HCPCS: 30901; 99283